=== PATIENT | female | born 1940 | race Caucasian/White ===

== ENCOUNTER 2016-11-20 13:22 | Emergency (ER) | payer BC ==
--- NOTE | 2016-11-24 13:12 | ER ---
ADMIT: 11/20/2016 RM/LOC: ER [facility] MR#: [id number] [address] [facility] [address] [place], [place] [id number] DARINA CASTILLO [address] [address] Emergency Room Report SEX: F AGE: 76 : 1940 DATE: 11/20/2016 ADDENDUM: This patient comes into the ER because today she noticed a swollen area on her left cheek that is itchy. It is nontender to palpation. She has had breast cancer, and she always worries if she notices any new lumps on her. On physical exam, she has a small area on her left cheek that is consistent with an urticaric-type lesion. It has a fluffiness to it, and it is quite itchy and raised. DIAGNOSIS: Urticaria. She was given Benadryl. Her son thinks that she also was outside. She could have been stung by a mosquito, and she does have swelling with mosquito bites generally that are more than normal person he states. I did give her some Benadryl. She should do Benadryl at home if needed. Otherwise, follow up with her physician if any signs of infection. Please see my T-sheet. DOTTY Ribera / Fabian Coreas MD / modl JOB #: [id number] CC: Oscar Ferrell MD, Attending Physician Trey Olmos MD, Family Physician
== END 2016-11-20 14:23 | disposition home or self-care (01) ==
LOC: ER 13:22
DX: L50.9 Urticaria, unspecified (principal); C50.919 Malignant neoplasm of unspecified site of unspecified female breast; Z79.899 Other long term (current) drug therapy